=== PATIENT | female | born 1960 | race Caucasian/White ===

== ENCOUNTER 2023-10-31 00:17 | Day surgery (SDC) | payer OTHER, SELFPAY ==
[2023-10-12 10:27] VITALS: BMI 32.5
[2023-10-31 07:15] VITALS: BP 131/77; PULSE 77; RESP 18; TEMP 36.2; O2SAT 98
[2023-10-31] MEDS: LACTATED RINGERS 1,000 ML 150 ML IV CONT (07:27)
--- NOTE | 2023-10-31 08:16 | PM.HPGS ---
History of Present Illness History of Present Illness Consent: Risks, benefits, and alternatives have been discussed and questions answered. Patient agrees to proceed with procedure. Chief complaint: Neoplasm screening Narrative: Coty Maier is a 63 year old female here for screening colonoscopy, last one 10 years ago Review of Systems Review of Systems: All systems reviewed & are unremarkable except as noted in HPI and below PMFSH Past Medical History Medical History (Updated 10/31/23 @ 08:18 by Kristian Cotto MD) Colon cancer screening Hyperlipidemia Hypertension Surgical History Surgical History Previous section 1987 S/P ORIF (open reduction internal fixation) fracture leg 2000 Social History Social History (Updated 07/05/23 @ 14:06 by Stacie Beltran MA) Smoking status: Never smoker Alcohol intake: current Drinks per week: 7 Alcohol use details: 1 BEER DAILY Substance use: never Substance use type: does not use Do You Feel Safe in your Home?: Yes Lack of Transportation: No Lack of Food: Never True Current Housing: I Have Housing Concerned About Future Housing: No Difficulty Paying Gas/Electric Bills: No Difficulty Paying for Meds: No Currently Unemployed: YES Education: Bachelor's Degree Difficulty w/ Childcare or Family Care: No Living arrangements: with family Occupation/Education: unemployed Gender identity (if verbalized by the patient): Female Sexual Orientation (if Verbalized by the Patient): Straight or Heterosexual Spiritual care concerns: No Meds Home Medications and Allergies Home Medications Medication Instructions Recorded Confirmed Type atorvastatin 20 mg tablet See Rx Instructions .Route 06/01/23 10/31/23 Rx .COMPLEX #90 tabs metoprolol tartrate 50 mg tablet See Rx Instructions .Route 06/01/23 10/31/23 Rx .COMPLEX #180 tabs cholecalciferol (vitamin D3) 25 50 mcg PO DAILY 07/05/23 10/31/23 History mcg (1,000 unit) capsule lipoflavinoid See Rx Instructions .Route 07/05/23 10/31/23 Rx .COMPLEX #100 tabs melatonin 5 mg tablet 5 mg PO QHS 07/05/23 10/31/23 History qdnrxlbl-wjh-qbibb ac 400 1 tablet PO DAILY 07/05/23 10/31/23 History mcg-calcium carb 500 mg-vit K1 20 mcg tablet (Women's 50 Plus Multivitamin) super beets See Rx Instructions .Route .COMPLEX 07/05/23 10/31/23 History Allergies Allergy/AdvReac Type Severity Reaction Status Date / Time almond Allergy Severe Difficulty Verified 10/31/23 07:15 Breathing, HIVES cashew nut Allergy Severe Difficulty Verified 10/31/23 07:15 Breathing, HIVES No Known Drug Allergies Allergy Unknown nkda Verified 10/31/23 07:15 Vital Signs Vital Signs - 24 hr 10/31/23 07:15 Temperature 97.1 F L Pulse Rate 77 Respiratory Rate 18 Blood Pressure 131/77 Pulse Oximetry 98 Oxygen Delivery Room Air Exam Const: General: comfortable and no acute distress HENMT: Face/Nose/Sinus: Normal nares present Eyes: General: appearance normal, both eyes and all related structures Neck: Neck: no JVD Resp: Auscultation: clear to auscultation bilaterally Cardio: Rate: regular rate Rhythm: regular rhythm GI: Inspection: non-distended GI Palp: Yes Soft to palpation Skin: General skin exam: normal color Neuro: General: gait normal Speech: normal speech Extrem: General: normal to inspection Psych: Mental Status: mental status grossly normal Assessment and Plan Assessment and plan (1) Colon cancer screening: Code(s): Z12.11 - Encounter for screening for malignant neoplasm of colon Status: Acute Assessment and Plan: colonoscopy
[2023-10-31 08:33] VITALS: BP 99/51; PULSE 70; RESP 18; O2SAT 97
[2023-10-31 08:43] VITALS: BP 94/58; PULSE 69; RESP 18; O2SAT 96
[2023-10-31 08:53] VITALS: BP 114/71; PULSE 69; RESP 21; O2SAT 99
== END 2023-10-31 09:05 | disposition home or self-care (01) ==
PROVIDERS: PCP Family Medicine; Visit Provider Internal Medicine Gastroenterology
PROC: 0DJD8ZZ Inspection of Lower Intestinal Tract, Via Natural or Artificial Opening Endoscopic (ICD-10-PCS; CPT 45378; principal; 2023-10-31 08:30)
DX: Z12.11 Encounter for screening for malignant neoplasm of colon (principal); K63.5 Polyp of colon; K64.8 Other hemorrhoids; I10 Essential (primary) hypertension; E78.5 Hyperlipidemia, unspecified; Z98.890 Other specified postprocedural states
CPT/HCPCS: 45385; 88305; J2704; J7120

== ENCOUNTER 2023-11-15 12:38 | Outpatient (CLI) | payer OTHER, SELFPAY ==
--- NOTE | ~2023-11-15 | MM_ITS ---
EXAMINATION: MM screening ravindra BI w perri HISTORY: Screening mammogram TECHNIQUE: Craniocaudal and mediolateral oblique 3-D tomosynthesis images were obtained and synthetic 2-D images were generated. CAD analysis was submitted and interpreted. COMPARISON: No prior mammogram is available for comparison at this institution. BREAST PARENCHYMAL COMPOSITION:Not Dense. The breasts are almost entirely fatty FINDINGS: No suspicious mass, calcification, or architectural distortion are identified in either tuan ast to suggest malignancy. There has been no suspicious interval change. IMPRESSION: No mammographic evidence of malignancy. Recommend routine screening mammography in one year. BI-RADS Category 1: Negative Reviewed, dictated and finalized at location .
== END 2023-11-15 12:39 | disposition home or self-care (01) ==
LOC: MICIMG 12:41
PROVIDERS: PCP Family Medicine; Visit Provider Family Medicine
DX: Z12.31 Encounter for screening mammogram for malignant neoplasm of breast (principal)
CPT/HCPCS: 77063; 77067